=== PATIENT | female | born 1980 | race Caucasian/White ===

== ENCOUNTER 2020-05-10 00:06 | Emergency (ER) | payer SELFPAY ==
[~2020-05-10] VITALS: Ht 160 cm; Wt 78.0 kg
[2020-05-10 00:25] VITALS: Ht 160 cm; Wt 78.0 kg
[2020-05-10 04:29] LABS: CALCIUM 9.2 mg/dL (8.5-10.1); CARBON DIOXIDE 22.6 mmol/L (21-32); CHLORIDE SERUM 100 mmol/L (98-107); GFR1 > 60 mL/min; GLUCOSE SERUM 139 mg/dL (74-106); SODIUM SERUM 135 mmol/L (136-145)
[2020-05-10 04:40] LABS: ALBUMIN 3.8 g/dL (3.4-5.0); ALKALINE PHOSPHATASE 79 U/L (46-116); ALT/SGPT 57 U/L (14-59); AST/SGOT 13 U/L (15-37); BILIRUBIN TOTAL 0.56 mg/dL (0.20-1.00); TOTAL PROTEIN, SERUM 7.8 g/dL (6.4-8.2)
[2020-05-10 04:53] LABS: BASOPHIL % 0.5 % (0.2-1.3); PLATELET COUNT 265 x10^3mcL (179-408)
[2020-05-10 05:10] LABS: RED CELL DISTRIBUTION WIDTH 16.8 % (12.3-17.7)
[2020-05-10 09:52] VITALS: BP 125/76
== END 2020-05-10 09:53 | disposition home or self-care (01) ==
LOC: ED 00:06
DX: N12 Tubulo-interstitial nephritis, not specified as acute or chronic (principal); F17.210 Nicotine dependence, cigarettes, uncomplicated; Z88.5 Allergy status to narcotic agent; Z86.73 Personal history of transient ischemic attack (TIA), and cerebral infarction without residual deficits
CPT/HCPCS: J1885